=== PATIENT | female | born 2000 | race Two or more races ===

== ENCOUNTER 2024-11-12 19:51 | Emergency (ER) | payer MEDICAID, SELFPAY ==
[2024-11-12 20:20] VITALS: BP 125/57; PULSE 78; RESP 19; TEMP 37.7; O2SAT 99
--- NOTE | 2024-11-12 20:23 | EDNOTE_ITS ---
ED Extremity Problem RME/HPI General Chief complaint: Extremity Problem,Nontraumatic Stated complaint: LEFT LEG PAIN Time Seen by Provider: 11/12/24 19:57 Arrival date/time: 11/12/24 19:51 RME / HPI RME / HPI Narrative: 23-year-old female patient came in for evaluation regarding low back pain. Onset of symptoms since early this morning as low back pain, pain radiates to the left lower extremity, posterior aspect, severity moderate. Patient denies any urinary incontinence denies any bladder incontinence denies any dysuria frequency or other complaints. No medication was taken prior to arrival. Related Data Allergies Allergy/AdvReac Type Severity Reaction Status Date / Time No Known Allergies Allergy Verified 11/12/24 19:53 Review of Systems Review of Systems Narrative Review of Systems: Review of system reviewed and within normal limits except mentioned in HPI ED Exam Narrative Physical exam: VITAL SIGNS: Reviewed. GENERAL APPEARANCE: Alert and interactive, follows commands, no acute distress, HEAD AND FACE: Non-traumatic. ENT: PERRL, pink conjunctivitis, eyelid no trauma, Mucous membrane moist. NECK: Supple, nontender, no nuchal rigidity. CHEST: No tenderness, no crepitus, no paradoxical movement, no retractions. LUNGS: Clear, well ventilated, symmetric, no rales, no wheezing, no ronchi, no stridor, good breath sounds bilaterally. HEART: Regular rate, regular rhythm, no murmur, no gallops. ABDOMEN: Soft, positive bowel sounds, nondistended, no guarding, nontender, no rebound, no masses, RECTAL: Deferred. GENITAL: Deferred. NEUROLOGICAL: Gross motor function intact sensory function intact, Appropriate for age. MUSCULOSKELETAL: low back tenderness, full range of motion. EXTREMITIES: + Tenderness to the left posterior thigh, positive straight leg raising test at 45 degrees, full range of motion. SKIN: Color pink, dry, no rash, no lacerations, no abrasions, no contusions. LYMPHATICS: Deferred. Course Quality Measures none Orders Category Date Time Status HCG Qualitative,Urine Stat Lab 11/12/24 21:05 Completed UA, C/S IF [Urinalysis, C/S if Indicated] Stat Lab 11/12/24 21:05 Completed Acetaminophen Tab [Tylenol ES Tab] Med 11/12/24 21:34 Discontinued 1,000 mg PO X1 ONE Ketorolac Inj [Toradol Inj] Med 11/12/24 20:22 Discontinued 30 mg IM X1 ONE Vital Signs Vital signs: Vital Signs Temperature 100 F 11/12/24 20:20 Pulse Rate 78 11/12/24 20:20 Respiratory Rate 19 11/12/24 20:20 Blood Pressure 125/57 L 11/12/24 20:20 Pulse Oximetry (%) 99 11/12/24 20:20 Oxygen Delivery Method Room Air 11/12/24 20:20 Extremity Problem [facility] Narrative [facility] Narrative:: 23-year-old female patient came in for evaluation regarding low back pain. Onset of symptoms since early this morning as low back pain, pain radiates to the left lower extremity, posterior aspect, severity moderate. Patient denies any urinary incontinence denies any bladder incontinence denies any dysuria frequency or other complaints. No medication was taken prior to arrival. Patient tested positive for . Urinalysis no UTI. Patient is having sciatica. Further imaging or workup started at this time. Patient is not having any abdominal pain, no vaginal bleeding or spotting. Denies any pelvic pain also. Patient was advised to closely follow-up with PCP or DIALYSIS EQUIPMENT TECHNICIAN for checkup. Patient appears nontoxic and hemodynamically stable. Patient discharged home and instructed to follow-up with primary care provider in 24 to 48 hours. Instructed to return to the emergency department immediately if worsening of symptoms Patient data External records reviewed:: None Clinical information provided by:: patient Social determinants that could affect healthcare access:: none Patient has the following chronic illnesses:: None How is presenting disease/condition affected by chronic disease/condition?: no chronic disease Evaluation data The following diagnostics were reviewed and interpreted by me:: lab results Lab and/or radiology exams considered but not ordered:: None Interpretation Summary: See results in MDM Medications / Prescriptions Medications or Prescriptions considered but not ordered:: None Medication administrations:: Medication Administration History Discontinued Medications Acetaminophen (Acetaminophen 500 Mg Tablet) 1,000 mg PO X1 ONE Stop: 11/12/24 21:35 Last Admin: 11/12/24 21:37 Dose: 1,000 mg Documented By: AGUSTINA Ketorolac Tromethamine (Ketorolac Inj 60 Mg/2 Ml Vial) 30 mg IM X1 ONE Stop: 11/12/24 20:23 Last Admin: 11/12/24 21:33 Dose: Not Given Documented By: AGUSTINA Non-Admin Reason: Discontinued Tylenol Consultations Consultation(s) initiated? (list below): No Diagnosis Extremity Problem Differential Diagnosis: other (Low back pain, sciatica, ) Most likely diagnosis given after review of the tests above:: Sciatica, Admission Indicated Admission indicated?: not indicated Explain why admission is indicated or not indicated:: Stable Admission Request Was there a request for admission?: No Disposition Plan Disposition Plan: Discharge Discharge Attestation Discharge Attestation: The patient was given an opportunity to ask questions and understood the discharge instructions. Discharge instructions specifically effects, indications for sooner follow up or return to the emergency department, and the expected course of current diagnosis. Patient condition: Stable Discharge Plan Plan Patient Disposition: HOME (Self Care) Disposition Comment: Stable Prescriptions/Referrals Referrals: No Primary/Family,Physician [Primary Care Provider] - In 1 week Problem List Clinical Impression: Sciatica, Patient/Caregiver Discharge Instructions Discharge Activity: activity as tolerated Education Materials: First Trimester, ED Sciatica Additional Instructions: Thank you for the opportunity for serving you today. You are stable for discharged . You are advised to: Follow-up with your PCP in 1 to 2 days regarding your positive Return to ED for worsening of symptoms, vaginal bleeding, abdominal pain Increase oral fluids Take [id number] Tylenol send for pain Print Language: Kazakh Stand Alone Forms: Tatyana Award Info., Patient Portal Info Letter RAVI/JILLIAN Supervising Physician RAVI/JILLIAN Supervising Physician: MD meredith
[2024-11-12 21:17] LABS: Collection Type, Urine Clean Catch
[2024-11-12 21:28] LABS: Bacteria,Urine Rare; Bilirubin,Urine Negative (Negative); Blood,Urine Negative (Negative); Clarity,Urine Clear (Clear/Hazy); Color,Urine Lt-Yellow (Lt Yel-Yel); Culture Indicated,Urine Not Indicated; Glucose, Urine Negative (Negative); Ketones,Urine Negative (Negative); Leukocyte Esterase,Urine Positive (Negative); Nitrite,Urine Negative (Negative); PH,Urine 6.5 (5.0-7.0); Protein,Urine Negative (Neg - Trace); RBC,Urine 1 /hpf (0-3); Squamous Epithelial Cell,Urine 4 /hpf (0-5); Urobilinogen,Urine Negative mg/dL (0.0-1.0); WBC,Urine < 1 /hpf (0-5)
[2024-11-12 21:31] LABS: HCG Qualitative,Urine Positive
[2024-11-12] MEDS: ACETAMINOPHEN 500 MG TABLET 1000 MG PO (21:37)
[2024-11-12 21:38] VITALS: BMI 31.2
[2024-11-12 22:20] VITALS: RESP 16
== END 2024-11-12 22:23 | disposition home or self-care (01) ==
PROVIDERS: Nurse Practitioner Family; Emergency Provider Emergency Medicine
DX: O99.891 Other specified diseases and conditions complicating pregnancy (principal); M54.42 Lumbago with sciatica, left side; Z3A.00 Weeks of gestation of pregnancy not specified
CPT/HCPCS: 81001; 81025; 99283; A9270

== ENCOUNTER 2025-05-31 09:15 | Outpatient (AMB) | payer MEDICAID, SELFPAY ==
[2025-05-31 09:31] VITALS: BP 109/70; PULSE 77; RESP 16; TEMP 36.1; O2SAT 97; BMI 31.8
--- NOTE | 2025-05-31 09:31 | AMB.OBINITIA ---
Vital Signs 05/31/25 09:31 Height 1.5 m Height Method Stated Weight 71.668 kg Weight Measurement Method Standing Scale BMI 31.8 BP 109/70 Blood Pressure Source Automatic Cuff Blood Pressure Location Left Upper Arm Position Sitting Respiration 16 Pulse 77 Pulse Source Monitor Temp 97.0 F Temp Source Oral Pulse Oximetry (%) 97 Oxygen Delivery Method Room Air Allergies/Home Meds Allergies & Medications Allergies No Known Allergies Allergy (Verified 05/31/25 09:32) Medication Reconciliation No Known Home Medications 05/31/25 [History Confirmed 05/31/25] Intake Visit Data Collection New Patient or Established: Established Patient (seen at [facility] within 3 years) Reason for Visit:: INITIAL CARE Seen by Clinical Staff ONLY (RN/MA): No Slot Editor Required: Yes Slot Editor's name/title: ELIDIA MORTENSEN Do You Feel Safe at Home: Yes Authorities Contacted: N/A PCP or OBGYN visit in last 3 months: Yes Hx Now: Yes Are you currently on any form of Control: No Pain Present Currently: No Pain Scale Used: Caruso-Travis/Numerical Pain scale:: 0 Smoking Status Smoking Status: Never smoker Questionnaires Covid-19 Vaccine Questionnaire Has patient been vacinated for Covid-19 Have you been vacinated for Covid-19: Yes PHQ-9 PHQ-2 Over the last 2 weeks, how often have you been bothered by any of the following problems? 1. Little interest or pleasure in doing things: not at all 2. Feeling down, depressed, or hopeless: not at all Total score: 0 PHQ-9 3. Trouble falling or staying asleep, or sleeping too much: Not at all 4. Feeling tired or having little energy: Not at all 5. Poor appetite or overeating: Not at all 6. Feeling bad about yourself - or that you are a failure or have let yourself or your family down: Not at all 7. Trouble concentrating on things, such as reading the newspaper or watching television: Not at all 8. Moving or speaking so slowly that other people could have noticed? - Or the opposite - being so fidgety or restless that you have been moving around a lot more than usual: not at all 9. Thoughts that you would be better off or of hurting yourself in some way: Not at all Total score: 0 Source: Developed by Drs. Leonel Irwin, Margoth Yeboah, John Espino and colleagues, with an educational zee from [employer]. Depression screen completed yes Social History Living Situation History Marital Status: Life Partner Lives With: Family Housing: House Tobacco History Smoking Status: Never smoker Second Hand Smoke Exposure: No Alcohol History Alcohol Intake: Never Domestic Abuse History Do You Feel Safe at Home: Yes History of Present Illness HPI Narrative Chief Complaint Transfer of care from [facility], care Patient is a 24-year-old at 32 weeks and 5 days gestation, presenting for transfer of care from [facility]. She reports no current complaints or concerns and denies experiencing any contractions or other -related problems. Her appears to be progressing normally, with no reported issues affecting her daily functioning or overall health status. She has a history of one previous resulting in delivery. Her previous was performed in [place], and she has expressed a preference to use the same incision site for her upcoming delivery. The patient denies any current -related symptoms or complications. Her current has an estimated due date of July 21, 2025, based on an ultrasound performed on December 28, 2024. 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 No contractions, LOF, VB and reports good FM. Denies WILLS, VC, and epigastric pain. - LMP dates are unknown. - Ultrasound on 12/28/2024 confirmed gestational age of 10 weeks and 5 days. - Estimated due date is 07/21/2025. - Patient reports no current contractions or problems with the . - History of one previous performed in [place]. - Patient prefers to use the same incision site for the upcoming . - Scheduled repeat section for July 14 at 7:30 AM (39 weeks gestation, one week before due date of July 21) - Plan to use same incision site as previous section - Follow-up appointment in 2 weeks - After next visit, schedule weekly appointments - Perform routine vaginal culture swab for GBS at 36 weeks during next visit Menstrual History Menstrual reliability: unknown Flow: normal Menstrual regularity: irregular Monthly: No Age at menarche: 10 On control pills at conception: No Associated symptoms (LMP): Denies amenorrhea, nausea, vomiting, fatigue, breast tenderness, urinary frequency, irritability, bloating or other OB History : 2 Para: 1 # of Living Children: 1 Delivery History 1st : Child's name: PANCHO date: 06/21/22 sex: male Gestational age at delivery (weeks): 41 Delivery type: Delivery complications: NONE History of depression before or after : No Infection History & Risk Evaluation History of STDs: none Genetic Screening & History Genetic Screening/Teratology Counseling - Includes patient, baby's father, or anyone in either family with: 1. Patient's age 35 years or older as of estimated date of delivery: No 2. Thalassemia (Citizen Of [place], Sami, Mediterranean, or Background); MCV less than 80: No 3. Neural Tube Defect (Meningomyelocele, Spina Bifida, or Anencephaly): No 4. Congenital Heart Defect: No 5. Down Syndrome: No 6. Jamie-Sachs (Ashkenazi Latter Day, Cajun, Iranian Citizen Of [place]): No 7. Vladislav Disease (Ashkenazi Latter Day): No 8. Familial Dysautonomia (Ashkenazi Latter Day): No 9. Sickle Cell Disease or Trait (): No 10. Hemophilia or other blood disorders: No 11. Muscular Dystrophy: No 12. Cystic Fibrosis: No 13. [place]'s Chorea: No 14. Mental Retardation/Autism: No 15. Other inherited genetic or chromosomal disorder: No 16. Maternal Metabolic Disorder (EG,TYPE 1 Diabetes, PKU): No 17. Patient or baby's father had a child with defects not listed above: No 18. Recurrent loss or a stillbirth: No 19. Medications (including supplements, vitamins, herbs or otc drugs)/illicit/recreational drugs/alcohol since last menstrual period: No 20. Any other: No Infection History 1. Live with someone with TB or exposed to TB: No 2. Rash or viral illness since last menstrual period: No 3. Hepatitis B,C: No Other (see comments) Source: [employer] Review of Systems Constitutional Constitutional: Denies fatigue Gastrointestinal Gastrointestinal: Denies bloating, Denies nausea and Denies vomiting Genitourinary Genitourinary: Denies amenorrhea and Denies urinary frequency Psychiatric Psychiatric: Denies irritability Endocrine Endocrine: Denies fatigue Exam General General Appearance: alert, in no apparent distress and healthy appearing Head Head exam: atraumatic Neck Neck exam: Present normal inspection and trachea midline Chest Chest inspection: Present normal inspection and symmetric chest wall rise External exam: Present normal external exam; Absent tenderness Neuro Neurological exam: Present oriented X3 Psych Psychiatric exam: Present normal affect and normal mood Office Procedures [facility] LOC & Office Proc's Nursing/Assessment Patient Status: Established Patient OB Clinic Nursing Assessment: Medication Reconciliation, Update PMH in EMR and Vital Signs OB Clinic Coordination of Care: Complex Care and Chronic Disease 1-5, Consent,records obtained, informed consent, Education Simp Pt/Fam, 1 Ins Authorization, Lab and Imaging orders, Results/Orders obtained and Staff clarify orders Special Needs: Heart tones Established Patient Charge Established Patient Point Assignment: 150 Established Patient Point Charge: EP Level 4 (120-155) Assessment & Plan Diagnosis / Problem List (1) Maternal care for low transverse scar from previous delivery: Status: Acute (2) Supervision of high risk , unspecified, third trimester: Status: Acute Plan Problem List - , second trimester - History of section - Obesity - Rubella non-immune status - Urinary tract infection due to Enterococcus Assessment 24-year-old 2 para 1 female at 32 weeks 5 days gestation with history of prior section, currently transferred for continued obstetric care. Patient has elevated BMI of 31.8. dating established by ultrasound on 12/28/2024 showing 10 weeks 5 days gestation with estimated due date of 07/21/2025. laboratory studies notable for hemoglobin 13.2, A1C 5.5, rubella nonimmune status, and urine culture positive for enterococcus which was treated with antibiotics. All other screening tests including PAP, gonorrhea/chlamydia, NIPT, AFP, HIV, RPR, and hepatitis B were negative. Patient carrying male fetus with blood type O positive. Currently asymptomatic with no reported contractions or problems, and heart rate of 145 bpm documented as normal. Plan - Scheduled repeat section for July 14 at 7:30 AM (39 weeks gestation, one week before due date of July 21) - Plan to use same incision site as previous section - Follow-up appointment in 2 weeks - After next visit, schedule weekly appointments - Perform routine vaginal culture swab for GBS at 36 weeks during next visit 1. Progress Reviewed gestational age, growth, and heart rate. Planned frequent visits (every 2 weeks until 36 weeks, then weekly). 2. Instructed patient to monitor movements and report decreases immediately. 3. Testing Counseled on routine third-trimester labs per guidelines. Discussed potential need for ultrasound or monitoring based on risk factors. 4. Preeclampsia Precaution Educated on preeclampsia signs: severe headache, vision changes, right upper quadrant pain, sudden swelling. Advised urgent reporting of symptoms and discussed blood pressure monitoring if high risk. 5. Labor Precautions Reviewed labor signs: regular contractions, pelvic pressure, back pain, bleeding, or fluid leakage. Instructed to seek immediate care for these symptoms. 6. Lifestyle and Delivery Preparation Reinforced vitamins, nutrition, and safe activity. Discussed plan, pain management, and . Advised on labor preparation (e.g., hospital bag) and expectations. 7. Psychosocial Support Assessed emotional well-being and offered resources for mental health or parenting support.
== END 2025-05-31 09:47 | disposition home or self-care (01) ==
LOC: HODSOBC 09:15
PROVIDERS: Supervising Provider Obstetrics & Gynecology; Visit Provider Obstetrics & Gynecology
DX: O09.293 Supervision of pregnancy with other poor reproductive or obstetric history, third trimester (principal); O34.211 Maternal care for low transverse scar from previous cesarean delivery; O09.893 Supervision of other high risk pregnancies, third trimester; O99.213 Obesity complicating pregnancy, third trimester; Z3A.32 32 weeks gestation of pregnancy; Z78.9 Other specified health status
CPT/HCPCS: 99214; G0463

== ENCOUNTER 2025-06-16 10:45 | Outpatient (AMB) | payer MEDICAID, SELFPAY ==
[2025-06-16 11:06] VITALS: BP 120/75; PULSE 69; RESP 14; TEMP 36.4; O2SAT 98; BMI 32.7
--- NOTE | 2025-06-16 11:06 | OBCLNT_ITS ---
Vital Signs 06/16/25 11:06 Height 1.5 m Height Method Stated Weight 73.595 kg Weight Measurement Method Standing Scale BMI 32.7 BP 120/75 Blood Pressure Source Automatic Cuff Blood Pressure Location Left Upper Arm Position Sitting Respiration 14 Pulse 69 Pulse Source Monitor Temp 97.6 F Temp Source Oral Pulse Oximetry (%) 98 Oxygen Delivery Method Room Air Allergies/Home Meds Allergies & Medications Allergies No Known Allergies Allergy (Verified 07/14/25 08:23) Medication Reconciliation docusate sodium 100 mg capsule (Stool Softener) 100 mg PO QDAY 30 days #30 caps 07/14/25 [Rx] hydrocodone 5 mg-acetaminophen 325 mg tablet 1 tab PO Q6H PRN pain 5 days #20 tabs 07/14/25 [Rx] ibuprofen 600 mg tablet 600 mg PO Q6H PRN fever or pain 10 days #40 tabs 07/14/25 [Rx] Intake Visit Data Collection New Patient or Established: Established Patient (seen at [facility] within 3 years) Reason for Visit:: CARE Seen by Clinical Staff ONLY (RN/MA): No Sand Screener Required: No Do You Feel Safe at Home: Yes Authorities Contacted: N/A PCP or OBGYN visit in last 3 months: Yes Hx Now: Yes Are you currently on any form of Control: No Pain Present Currently: No Pain Scale Used: Caruso-Travis/Numerical Pain scale:: 0 Smoking Status Smoking Status: Never smoker Questionnaires Covid-19 Vaccine Questionnaire Has patient been vacinated for Covid-19 Have you been vacinated for Covid-19: Yes PHQ-9 PHQ-2 Over the last 2 weeks, how often have you been bothered by any of the following problems? 1. Little interest or pleasure in doing things: not at all 2. Feeling down, depressed, or hopeless: not at all Total score: 0 PHQ-9 3. Trouble falling or staying asleep, or sleeping too much: Not at all 4. Feeling tired or having little energy: Not at all 5. Poor appetite or overeating: Not at all 6. Feeling bad about yourself - or that you are a failure or have let yourself or your family down: Not at all 7. Trouble concentrating on things, such as reading the newspaper or watching television: Not at all 8. Moving or speaking so slowly that other people could have noticed? - Or the opposite - being so fidgety or restless that you have been moving around a lot more than usual: not at all 9. Thoughts that you would be better off or of hurting yourself in some way: Not at all Total score: 0 Source: Developed by Drs. Leonel Irwin, Margoth Yeboah, John Espino and colleagues, with an educational zee from [employer]. Depression screen completed yes Social History Living Situation History Lives With: Family Housing: House Tobacco History Smoking Status: Never smoker Second Hand Smoke Exposure: No Alcohol History Alcohol Intake: Never Domestic Abuse History Do You Feel Safe at Home: Yes Care OB Visit Log OB Flowsheet Initial Weight: Not Recorded Date -?-?-?-?-?-?-?-?-?-?-?-?- EGA Weight BP Alb Glu CTX Pres Fundal ht FHR Mov Dilation Station Effacement Hx Notes Visit Note 05/31/25 -?-?-?-?-?-?-?-?-?-?-?-?- 32w 5d 71.668 kg 109/70 absent cephalic 33 145 Patient has a history of prior delivery. No contractions, LOF, VB and reports goo d FM. Denies WILLS, VC, and epigastric pain. - LMP dates are unknown. - Ultrasound on 12/28/2024 confirmed gest ational age of 10 weeks and 5 days. - Estimated due date is 07/21/2025. - Patient reports no current contraction s or problems with the . - History of one previous perf ormed in [place]. - Patient prefers to use the same incision site for the upcoming C- section. - Scheduled repeat section for July 14 at 7:30 AM (39 weeks gestation, one week before due date of July 21) - Plan to use same incision site as prev ious section - Follow-up appointment in 2 weeks - After next visit, schedule weekly appo intments - Perform routine vaginal culture swab f or GBS at 36 weeks during next visit 06/16/25 -?-?-?-?-?-?-?-?-?-?-?-?- 35w 0d 73.595 kg 120/75 absent breech 35 155 - She reports no contractions and describes the baby as active. - Patient has a scheduled repeat cesarea n section planned for July 14, 2025 at 7:30 AM. - She requested verification documentation. - Repeat scheduled for 07-14-2025 at 7:30 AM - GBS culture to be obtained at next vis it in one week - MMR vaccination due to rube lla nonimmune status - verification letter to be pr ovided AMY Calculator Estimated Delivery Date Method Current WG Current Estimate 07/21/25 Ultrasound #1 39w 0d Notes Visit Date: 05/31/25 Last Updated by: Agustín Villar MD Diagnostic Test Results and Labs: - Ultrasound (12/28/2024): Gestational age 10 weeks and 5 days, estimated due date 07/21/2025 - PAP: Negative - Gonorrhea: Negative - Chlamydia: Negative - NIPT screen: Negative - AFP: Negative - sex: Male - Blood group: O positive - A1C: 5.5 - Rubella: Nonimmune - Initial hemoglobin: 13.2 - HIV: Negative - RPR: Non-reactive - Hepatitis B: Negative - Urine culture: Positive for enterococcus Office Procedures [facility] Clinic LOC & Office Proc's Nursing/Assessment Patient Status: Established Patient OB Clinic Nursing Assessment: Medication Reconciliation, Update PMH in EMR and Vital Signs OB Clinic Coordination of Care: Complex Care and Chronic Disease 1-5, Consent,records obtained, informed consent, Education Simp Pt/Fam, Lab and Imaging orders, Results/Orders obtained and Staff clarify orders Special Needs: Heart tones Established Patient Charge Established Patient Point Assignment: 135 Established Patient Point Charge: EP Level 4 (120-155) Assessment & Plan Diagnosis / Problem List (1) delivery delivered: Status: Acute (2) Supervision of high risk , unspecified, third trimester: Status: Acute (3) Maternal care for low transverse scar from previous delivery: Status: Acute Plan Problem List - , second trimester - Group B Streptococcus screening - History of enterococcus uteri - Rubella nonimmune status Assessment 35-week patient, 2 para 1, with history of enterococcus uteri that was treated per culture. Patient is rubella nonimmune. heart rate is 156 with normal rhythm. Patient reports no contractions and describes baby as active. Plan - Repeat scheduled for 07-14-2025 at 7:30 AM - GBS culture to be obtained at next visit in one week - MMR vaccination due to rubella nonimmune status - verification letter to be provided 1. Progress Reviewed gestational age (35 weeks 0 days), growth, and heart rate (156, normal). Planned frequent visits (every 2 weeks until 36 weeks, then weekly). 2. Instructed patient to monitor movements and report decreases immediately. 3. Testing Counseled on routine third-trimester labs per guidelines (GBS culture scheduled). Discussed potential need for ultrasound or monitoring based on risk factors. 4. Preeclampsia Precaution Educated on preeclampsia signs: severe headache, vision changes, right upper quadrant pain, sudden swelling. Advised urgent reporting of symptoms and discussed blood pressure monitoring if high risk. 5. Labor Precautions Reviewed labor signs: regular contractions, pelvic pressure, back pain, bleeding, or fluid leakage. Instructed to seek immediate care for these symptoms. 6. Lifestyle and Delivery Preparation Reinforced vitamins, nutrition, and safe activity. Discussed plan (repeat scheduled 07-14-2025 at 7:30), pain management, and . Advised on labor preparation (e.g., hospital bag) and expectations. 7. Psychosocial Support Assessed emotional well-being and offered resources for mental health or parenting support.
== END 2025-06-16 11:24 | disposition home or self-care (01) ==
PROVIDERS: Supervising Provider Obstetrics & Gynecology; Visit Provider Obstetrics & Gynecology
DX: O09.293 Supervision of pregnancy with other poor reproductive or obstetric history, third trimester (principal); O34.211 Maternal care for low transverse scar from previous cesarean delivery; Z3A.35 35 weeks gestation of pregnancy
CPT/HCPCS: 99214; G0463

== ENCOUNTER 2025-06-25 19:31 | Observation (INO) | payer MEDICAID, SELFPAY ==
[2025-06-25] VITALS (46 sets, daily range): BP systolic 96–116; BP diastolic 58–87; PULSE 67–81; RESP 16–98; TEMP 37.1; O2SAT 93–100; BMI 33.0
[2025-06-25] MEDS: ACETAMINOPHEN 325 MG TABLET 650 MG PO (20:39)
[2025-06-25] MEDS: HYDROcodone/APAP 5/325 TABLET 1 TAB PO (21:39)
== END 2025-06-25 23:20 | disposition home or self-care (01) ==
PROVIDERS: Admitting Provider Obstetrics & Gynecology; Visit Provider Obstetrics & Gynecology
DX: O99.891 Other specified diseases and conditions complicating pregnancy (principal); M54.32 Sciatica, left side; Z3A.36 36 weeks gestation of pregnancy
CPT/HCPCS: 59025; 59899; A9270

== ENCOUNTER 2025-06-27 09:51 | Outpatient (AMB) | payer MEDICAID, SELFPAY ==
[2025-06-27 10:11] VITALS: BP 115/70; PULSE 80; RESP 18; TEMP 36.2; O2SAT 998
--- NOTE | 2025-06-27 10:11 | OBCLNT_ITS ---
Vital Signs 06/27/25 10:11 Weight 73.595 kg Weight Measurement Method Standing Scale BP 115/70 Blood Pressure Source Automatic Cuff Blood Pressure Location Left Upper Arm Position Sitting Respiration 18 Pulse 80 Pulse Source Monitor Temp 97.2 F Temp Source Oral Pulse Oximetry (%) 998 H Oxygen Delivery Method Room Air Allergies/Home Meds Allergies & Medications Allergies No Known Allergies Allergy (Verified 07/14/25 08:23) Medication Reconciliation docusate sodium 100 mg capsule (Stool Softener) 100 mg PO QDAY 30 days #30 caps 07/14/25 [Rx] hydrocodone 5 mg-acetaminophen 325 mg tablet 1 tab PO Q6H PRN pain 5 days #20 tabs 07/14/25 [Rx] ibuprofen 600 mg tablet 600 mg PO Q6H PRN fever or pain 10 days #40 tabs 07/14/25 [Rx] Intake Visit Data Collection New Patient or Established: Established Patient (seen at [facility] within 3 years) Reason for Visit:: OBC Seen by Clinical Staff ONLY (RN/MA): No Registered Public Health Nurse Required: Yes Registered Public Health Nurse's name/title: DEIDRE FIELDS MA Do You Feel Safe at Home: Yes Authorities Contacted: N/A PCP or OBGYN visit in last 3 months: Yes Date of Last PCP or OBGYN visit: 06/25/25 Hx Now: Yes Are you currently on any form of Control: No Pain Present Currently: No Pain Scale Used: Caruso-Travis/Numerical Pain scale:: 0 Smoking Status Smoking Status: Never smoker Immunizations Flu Vaccine in the Last 12 Months: No Flu Vaccine Exclusion Criteria: No Exclusion Criteria Questionnaires Covid-19 Vaccine Questionnaire Has patient been vacinated for Covid-19 Have you been vacinated for Covid-19: Yes PHQ-9 PHQ-2 Over the last 2 weeks, how often have you been bothered by any of the following problems? 1. Little interest or pleasure in doing things: not at all 2. Feeling down, depressed, or hopeless: not at all Total score: 0 PHQ-9 3. Trouble falling or staying asleep, or sleeping too much: Not at all 4. Feeling tired or having little energy: Not at all 5. Poor appetite or overeating: Not at all 6. Feeling bad about yourself - or that you are a failure or have let yourself or your family down: Not at all 7. Trouble concentrating on things, such as reading the newspaper or watching television: Not at all 8. Moving or speaking so slowly that other people could have noticed? - Or the opposite - being so fidgety or restless that you have been moving around a lot more than usual: not at all 9. Thoughts that you would be better off or of hurting yourself in some way: Not at all Total score: 0 If you checked off any problems, how difficult have these problems made it for you to do your work, take care of things at home, or get along with other people?: not difficult at all Source: Developed by Drs. Leonel Irwin, Margoth Yeboah, John Espino and colleagues, with an educational zee from [employer]. Depression screen completed yes Social History Living Situation History Lives With: Family Housing: House Tobacco History Smoking Status: Never smoker Second Hand Smoke Exposure: No Alcohol History Alcohol Intake: Never Domestic Abuse History Do You Feel Safe at Home: Yes Care OB Visit Log OB Flowsheet Initial Weight: Not Recorded Date -?-?-?-?-?-?-?-?-?-?-?-?- EGA Weight BP Alb Glu CTX Pres Fundal ht FHR Mov Dilation Station Ef facement Hx Notes Visit Note 05/31/25 -?-?-?-?-?-?-?-?-?-?-?-?- 32w 5d 71.668 kg 109/70 absent cephalic 33 145 Patient has a history of prior delivery. No contractions, LOF, VB and reports goo d FM. Denies WILLS, VC, and epigastric pain. - LMP dates are unknown. - Ultrasound on 12/28/2024 confirmed gest ational age of 10 weeks and 5 days. - Estimated due date is 07/21/2025. - Patient reports no current contraction s or problems with the . - History of one previous perf ormed in [place]. - Patient prefers to use the same incision site for the upcoming C- section. - Scheduled repeat section for July 14 at 7:30 AM (39 weeks g estation, one week before due date of July 21) - Plan to use same incision site as prev ious section - Follow-up appointment in 2 weeks - After next visit, schedule weekly appo intments - Perform routine vaginal culture swab f or GBS at 36 weeks during next visit 06/16/25 -?-?-?-?-?-?-?-?-?-?-?-?- 35w 0d 73.595 kg 120/75 absent breech 35 155 - She reports no contractions and describes the baby as active. - Patient has a scheduled repeat cesarea n section planned for July 14, 2025 at 7:30 AM. - She requested verification documentation. - Repeat scheduled for 07-14-2025 at 7:30 AM - GBS culture to be obtained at next vis it in one week - MMR vaccination due to rube lla nonimmune status - verification letter to be pr ovided 06/27/25 -?-?-?-?-?-?-?-?-?-?-?-?- 36w 4d 73.595 kg 115/70 occasional breech 37 1 45 - has been uncomplicated. - Patient reports baby is moving appropr iately. - She denies contractions. - Patient has a scheduled repeat cesarea n section on July 14. - Patient inquired about some form of tr eatment or therapy but was informed it was too late in due to positioning requirements. - She reports experiencing some pain for which she was advised to use rest, Tylenol, and hot compresses. - G BS culture performed - Scheduled repeat section on N 2024 - For current pain: lie down, take Tylen ol, and apply hot compresses - Follow-up appointment in one week prio r to scheduled section AMY Calculator Estimated Delivery Date Method Current WG Current Estimate 07/21/25 Ultrasound #1 39w 0d Notes Visit Date: 05/31/25 Last Updated by: Agustín Villar MD Diagnostic Test Results and Labs: - Ultrasound (12/28/2024): Gestational age 10 weeks and 5 days, estimated due date 07/21/2025 - PAP: Negative - Gonorrhea: Negative - Chlamydia: Negative - NIPT screen: Negative - AFP: Negative - sex: Male - Blood group: O positive - A1C: 5.5 - Rubella: Nonimmune - Initial hemoglobin: 13.2 - HIV: Negative - RPR: Non-reactive - Hepatitis B: Negative - Urine culture: Positive for enterococcus Office Procedures [facility] Clinic LOC & Office Proc's Nursing/Assessment Patient Status: Established Patient OB Clinic Nursing Assessment: Medication Reconciliation, Update PMH in EMR and Vital Signs OB Clinic Coordination of Care: Consent,records obtained, informed consent, Education Simp Pt/Fam, Lab and Imaging orders, Results/Orders obtained and Staff clarify orders Special Needs: Heart tones Miscellaneous Interventions: Pelvic Comp w/OB cult Established Patient Charge Established Patient Point Assignment: 125 Established Patient Point Charge: EP Level 4 (120-155) Assessment & Plan Diagnosis / Problem List (1) Maternal care for low transverse scar from previous delivery: Status: Acute (2) Supervision of high risk , unspecified, third trimester: Status: Acute Plan Assessment 24-year-old at 36 weeks 4 days gestation with uncomplicated . heart rate is 169 bpm, which is within normal limits. Patient is due for GBS culture, which was performed during this visit. Patient has scheduled repeat section on July 14. Patient reports movement and denies contractions. Plan - GBS culture performed - Scheduled repeat section on July 14, 2025 - For current pain: lie down, take Tylenol, and apply hot compresses - Follow-up appointment in one week prior to scheduled section 1. Progress Reviewed gestational age (36 weeks 4 days), growth, and heart rate (169 bpm, normal). Planned frequent visits (every 2 weeks until 36 weeks, then weekly). 2. Instructed patient to monitor movements and report decreases immediately. 3. Testing Counseled on routine third-trimester labs per guidelines (GBS culture performed). Discussed potential need for ultrasound or monitoring based on risk factors. 4. Preeclampsia Precaution Educated on preeclampsia signs: severe headache, vision changes, right upper quadrant pain, sudden swelling. Advised urgent reporting of symptoms and discussed blood pressure monitoring if high risk. 5. Labor Precautions Reviewed labor signs: regular contractions, pelvic pressure, back pain, bleeding, or fluid leakage. Instructed to seek immediate care for these symptoms. 6. Lifestyle and Delivery Preparation Reinforced vitamins, nutrition, and safe activity. Discussed plan (scheduled repeat on July 14, 2025), pain management, and . Advised on labor preparation (e.g., hospital bag) and expectations. 7. Psychosocial Support Assessed emotional well-being and offered resources for mental health or parenting support.
== END 2025-06-27 11:17 | disposition home or self-care (01) ==
LOC: HODSOBC 09:51
PROVIDERS: Supervising Provider Obstetrics & Gynecology; Visit Provider Obstetrics & Gynecology
DX: O09.293 Supervision of pregnancy with other poor reproductive or obstetric history, third trimester (principal); O34.211 Maternal care for low transverse scar from previous cesarean delivery; O09.893 Supervision of other high risk pregnancies, third trimester; Z3A.36 36 weeks gestation of pregnancy; Z36.85 Encounter for antenatal screening for Streptococcus B
CPT/HCPCS: 99214; G0463

== ENCOUNTER 2025-07-07 14:24 | Outpatient (AMB) | payer MEDICAID, SELFPAY ==
--- NOTE | 2025-07-07 14:25 | OBCLNT_ITS ---
Vital Signs 07/07/25 14:31 Height 1.5 m Height Method Stated Weight 76.657 kg Weight Measurement Method Standing Scale BMI 34.0 BP 110/71 Blood Pressure Source Automatic Cuff Blood Pressure Location Left Upper Arm Position Sitting Respiration 14 Pulse 75 Pulse Source Monitor Temp 97.5 F Temp Source Oral Pulse Oximetry (%) 98 Oxygen Delivery Method Room Air Allergies/Home Meds Allergies & Medications Allergies No Known Allergies Allergy (Verified 07/14/25 08:23) Medication Reconciliation docusate sodium 100 mg capsule (Stool Softener) 100 mg PO QDAY 30 days #30 caps 07/14/25 [Rx] hydrocodone 5 mg-acetaminophen 325 mg tablet 1 tab PO Q6H PRN pain 5 days #20 tabs 07/14/25 [Rx] ibuprofen 600 mg tablet 600 mg PO Q6H PRN fever or pain 10 days #40 tabs 07/14/25 [Rx] Intake Visit Data Collection New Patient or Established: Established Patient (seen at [facility] within 3 years) Reason for Visit:: CARE Seen by Clinical Staff ONLY (RN/MA): No Line Leader Required: No Do You Feel Safe at Home: Yes Authorities Contacted: N/A PCP or OBGYN visit in last 3 months: Yes Hx Now: No Pain Present Currently: No Pain Scale Used: Caruso-Travis/Numerical Pain scale:: 0 Smoking Status Smoking Status: Never smoker Immunizations Flu Vaccine in the Last 12 Months: Yes Flu Vaccine Exclusion Criteria: Already Received Questionnaires Covid-19 Vaccine Questionnaire Has patient been vacinated for Covid-19 Have you been vacinated for Covid-19: Yes PHQ-9 PHQ-2 Over the last 2 weeks, how often have you been bothered by any of the following problems? 1. Little interest or pleasure in doing things: not at all 2. Feeling down, depressed, or hopeless: not at all Total score: 0 PHQ-9 3. Trouble falling or staying asleep, or sleeping too much: Not at all 4. Feeling tired or having little energy: Not at all 5. Poor appetite or overeating: Not at all 6. Feeling bad about yourself - or that you are a failure or have let yourself or your family down: Not at all 7. Trouble concentrating on things, such as reading the newspaper or watching television: Not at all 8. Moving or speaking so slowly that other people could have noticed? - Or the opposite - being so fidgety or restless that you have been moving around a lot more than usual: not at all 9. Thoughts that you would be better off or of hurting yourself in some way: Not at all Total score: 0 Source: Developed by Drs. Leonel Irwin, Margoth Yeboah, John Espino and colleagues, with an educational zee from [employer]. Depression screen completed yes Social History Living Situation History Lives With: Family Housing: House Tobacco History Smoking Status: Never smoker Second Hand Smoke Exposure: No Alcohol History Alcohol Intake: Never Domestic Abuse History Do You Feel Safe at Home: Yes Care OB Visit Log OB Flowsheet Initial Weight: Not Recorded Date -?-?-?-?-?-?-?-?-?-?-?-?- EGA Weight BP Alb Glu CTX Pres Fundal ht FHR Mov Dilation Station Effacement Hx Notes Visit Note 05/31/25 -?-?-?--?-?-?-?-?-?-?-?-?- 32w 5d 71.668 kg 109/70 absent cephalic 33 145 Patient has a history of prior delivery. No contractions, LOF, VB and reports goo d FM. Denies WILLS, VC, and epigastric pain. - LMP dates are unknown. - Ultrasound on 12/28/2024 confirmed gest ational age of 10 weeks and 5 days. - Estimated due date is 07/21/2025. - Patient reports no current contraction s or problems with the . - History of one previous perf ormed in [place]. - Patient prefers to use the same incision site for the upcoming C- section. - Scheduled repeat section for July 14 at 7:30 AM (39 weeks gestation, one week before due date of July 21) - Plan to use same incision site as prev ious section - Follow-up appointment in 2 weeks - After next visit, schedule weekly appo intments - Perform routine vaginal culture swab f or GBS at 36 weeks during next visit 06/16/25 -?-?-?-?-?-?-?-?-?-?-?-?- 35w 0d 73.595 kg 120/75 absent breech 35 155 - She reports no contractions and describes the baby as active. - Patient has a scheduled repeat cesarea n section planned for July 14, 2025 at 7:30 AM. - She requested verification documentation. - Repeat scheduled for 07-14-2025 at 7:30 AM - GBS culture to be obtained at next vis it in one week - MMR vaccination due to rube lla nonimmune status - verification letter to be pr ovided 06/27/25 -?-?-?-?-?-?-?-?-?-?-?-?- 36w 4d 73.595 kg 115/70 occasional breech 37 1 45 - has been uncomplicated. - Patient reports baby is moving appropr iately. - She denies contractions. - Patient has a scheduled repeat cesarea n section on July 14. - Patient inquired about some form of tr eatment or therapy but was informed it was too late in due to positioning requirements. - She reports experiencing some pain for which she was advised to use rest, Tylenol, and hot compresses. - G BS culture performed - Scheduled repeat section on 2024 - For current pain: lie down, take Tylen ol, and apply hot compresses - Follow-up appointment in one week xuan r to scheduled section 07/07/25 -?-?-?-?-?-?-?-?-?-?-?-?- 38w 0d 76.657 kg 110/71 absent breech 39 165 No contractions, LOF, VB and reports good FM. Denies WILLS, VC, and epigastric pain. - Scheduled section next Thursday at 7:30 AM - Patient to arrive at hospital at 5:00 AM for check-in - NPO after 10:00 PM the night before parada rgery - Patient to enter through emergency srinivasan m gate as main gate will be locked - No further appointments sched uled AMY Calculator Estimated Delivery Date Method Current WG Current Estimate 07/21/25 Ultrasound #1 39w 0d Notes Visit Date: 05/31/25 Last Updated by: Agustín Villar MD Diagnostic Test Results and Labs: - Ultrasound (12/28/2024): Gestational age 10 weeks and 5 days, estimated due date 07/21/2025 - PAP: Negative - Gonorrhea: Negative - Chlamydia: Negative - NIPT screen: Negative - AFP: Negative - sex: Male - Blood group: O positive - A1C: 5.5 - Rubella: Nonimmune - Initial hemoglobin: 13.2 - HIV: Negative - RPR: Non-reactive - Hepatitis B: Negative - Urine culture: Positive for enterococcus Office Procedures [facility] Clinic LOC & Office Proc's Nursing/Assessment Patient Status: Established Patient OB Clinic Nursing Assessment: Medication Reconciliation, Update PMH in EMR and Vital Signs OB Clinic Coordination of Care: Complex Care and Chronic Disease 1-5, Consent,records obtained, informed consent, Education Simp Pt/Fam, 1 Ins Authorization, Lab and Imaging orders, Results/Orders obtained and Staff clarify orders Special Needs: Heart tones Established Patient Charge Established Patient Point Assignment: 150 Established Patient Point Charge: EP Level 4 (120-155) Assessment & Plan Diagnosis / Problem List (1) Supervision of high risk , unspecified, third trimester: Status: Acute (2) Maternal care for low transverse scar from previous delivery: Status: Acute Plan Assessment 38-week patient with scheduled section. heart rate is 154 beats per minute, which is within normal limits. Plan - Scheduled section next Thursday at 7:30 AM - Patient to arrive at hospital at 5:00 AM for check-in - NPO after 10:00 PM the night before surgery - Patient to enter through emergency room gate as main gate will be locked - No further appointments scheduled 1. Progress Reviewed gestational age at 38 weeks and 0 days, growth, and heart rate of 154 bpm which is normal. Patient scheduled for section next Thursday. 2. Instructed patient to monitor movements and report decreases immediately. 3. Testing Counseled on routine third-trimester labs per guidelines. Discussed potential need for ultrasound or monitoring based on risk factors. 4. Preeclampsia Precaution Educated on preeclampsia signs: severe headache, vision changes, right upper quadrant pain, sudden swelling. Advised urgent reporting of symptoms and discussed blood pressure monitoring if high risk. 5. Labor Precautions Reviewed labor signs: regular contractions, pelvic pressure, back pain, bleeding, or fluid leakage. Instructed to seek immediate care for these symptoms. 6. Lifestyle and Delivery Preparation Reinforced vitamins, nutrition, and safe activity. Discussed section scheduled for next Thursday at 7:30 AM, with check-in at 5:00 AM at the hospital. Instructed patient not to eat or drink after 10 PM the night before surgery. Provided directions to enter through emergency room gate as main gate will be locked. 7. Psychosocial Support Assessed emotional well-being and offered resources for mental health or parenting support.
[2025-07-07 14:31] VITALS: BP 110/71; PULSE 75; RESP 14; TEMP 36.4; O2SAT 98; BMI 34.0
== END 2025-07-07 14:45 | disposition home or self-care (01) ==
LOC: HODSOBC 14:24
PROVIDERS: Supervising Provider Obstetrics & Gynecology; Visit Provider Obstetrics & Gynecology
DX: O09.293 Supervision of pregnancy with other poor reproductive or obstetric history, third trimester (principal); O34.211 Maternal care for low transverse scar from previous cesarean delivery; Z3A.38 38 weeks gestation of pregnancy
CPT/HCPCS: 99214; G0463

== ENCOUNTER 2025-07-14 05:21 | Inpatient (IN) | payer MEDICAID, SELFPAY ==
[2025-07-14] VITALS (16 sets, daily range): BP systolic 95–120; BP diastolic 46–82; PULSE 70–101; RESP 16–28; TEMP 36.4–36.9; O2SAT 96–100; BMI 32.7
[2025-07-14 06:20] LABS: Basophils # (Auto) 0.0 Thou/mm3 (0.0-0.2); Basophils % (Auto) 0 % (0-2.5); Eosinophils # (Auto) 0.2 Thou/mm3 (0.0-0.5); Eosinophils % (Auto) 2 % (0-10); Hematocrit 38.3 % (36.0-46.0); Hemoglobin 13.1 g/dL (12.0-16.0); Immature Granulocytes Auto 0.03 Thou/mm3 (0.00-0.00); Lymphocytes # (Auto) 2.2 Thou/mm3 (1.0-4.8); Lymphocytes % (Auto) 24 % (10-50); Mean Corpuscular HGB Conc 34.2 g/dl (31.0-37.0); Mean Corpuscular Hemoglobin 31.3 pg (25.0-35.0); Mean Corpuscular Volume 91 fL (80-100); Monocytes # (Auto) 0.4 Thou/mm3 (0.0-0.8); Monocytes % (Auto) 4 % (0-12); Neutrophils # (Auto) 6.3 Thou/mm3 (1.8-7.7); Neutrophils % (Auto) 69 % (37-80); Nucleated Red Blood Cell # 0.00 Thou/mm3 (0.00-0.00); Nucleated Red Blood Cell % 0 /100 WBC (0); Platelet Count 209 Thou/mm3 (140-440); RDW Standard Deviation 42.7 fL (36.4-46.3); Red Blood Count 4.19 Miln/mm3 (4.00-5.20); White Blood Count 9.1 Thou/mm3 (3.6-11.0)
[2025-07-14 07:01] LABS: Syphilis Nonreactive (Nonreactive)
[2025-07-14] MEDS: METOCLOPRAMIDE INJ 5 MG/ML VIAL 2 ML 10 MG IVP ×2 (07:18→10:56)
[2025-07-14] MEDS: FAMOTIDINE INJ 10 MG/ML VIAL 2 ML 20 MG IV (07:19)
[2025-07-14] MEDS: ceFAZolin/D5W 2 GM IV 2 GM/100 ML BAG IV (07:19)
[2025-07-14] MEDS: RINGERS LACTATED 1000 ML 1,000 ML 100 ML IV (07:19)
--- NOTE | 2025-07-14 07:29 | ESHP_ITS ---
Documentation for date of: 07/14/25 OB Labor/Induct. HPI History of Present Illness Chief complaint: Schedule repeat : 2 Para: 1 Term pregnancies: 1 pregnancies: 0 Living children: 1 History of Abortions: Spontaneous and Elective: 0 History of Vaginal deliveries: 0 History of sections: Yes History of : No Date of last menstrual period: 11/19/24 AMY: 07/21/25 Gestational Age (weeks): 39 Gestational age based on last menstrual period: 33 History of present illness: 24-year-old 2 para 1-0-0-1 at 39 weeks and 0 days is presenting for her scheduled repeat low-transverse . Patient has a history of 1 prior C- section in [place]. On presentation she denies any contractions or leakage of fluid or vaginal bleeding and reports adequate movements. Labs Labs: Negative: RPR, Hepatitis B, Rubella Titre, HIV, Chlamydia, Gonorrhea and Group Beta Strep and Unknown: Herpes Type 1, Herpes Type 2 and Covid-19 Past Medical History Surgical History SURGICAL: Positive Section Meds Home Medications and Allergies Home Medications ?Medication ?Instructions ?Recorded ?Confirmed ?Type aspirin 81 mg chewable tablet 1 tab PO QDAY 06/25/25 1 History vit no.95-ferrous 1 tab PO QDAY 06/25/2506/09 History fumarate 28 mg-folic acid 800 mcg tablet () Allergies Allergy/AdvReac Type Severity Reaction Status Date / Time No Known Allergies Allergy Verified 07/07/25 14:32 OB Exam Physical Exam Vital signs: Pulse BP 71 110/73 07/14/25 05:50 07/14/25 05:50 Constitutional Constitutional: no acute distress Routine HEENT Exam Head: Present normocephalic and atraumatic Eye: Present EOMI and PERRL ENT: Present mucous membranes moist Routine Neck Exam Neck: Present supple and trachea midline Routine Cardiovascular Exam Cardiovascular: Present RRR Routine Abdominal Exam Abdominal: Present soft and normoactive bowel sounds Detailed Labor and Delivery Exam Dilation (cm): 0 Effacement (%): 0 Cervix position: mid station: -3 Consistency: firm Presentation: Vertex Baseline heart rate: 145 monitor accelerations: 15x15 monitor decelerations: None Routine Extremities Exam Extremities: Present full ROM Routine Skin Exam Skin: Present intact, dry and warm Routine Neurological Exam Neurological: Present alert, oriented X3 and CN II-XII intact Routine Psychiatric Exam Psychiatric: Present normal affect and normal thought process OB Results Labs 07/14/25 05:54 Labs: Short CBC 07/14/25 Range/Units 05:54 WBC 9.1 (3.6-11.0) Thou/mm3 Hgb 13.1 (12.0-16.0) g/dL Hct 38.3 (36.0-46.0) % Plt Count 209 (140-440) Thou/mm3 OB Assessment & Plan Assessment and Plan (1) Supervision of high risk , unspecified, third trimester: Status: Acute (2) Maternal care for low transverse scar from previous delivery: Status: Acute (3) delivery delivered: Status: Acute Assessment and plan: Admit to inpatient status for repeat low transverse IV access, CBC, type and screen, LR at 125, RPR, COVID-19 test GBS negative Ancef 2 g prior to surgery start Shields catheter to drainage SCDs for DVT prophylaxis Anesthesia to preop for spinal anesthesia Scheduled for surgery.
--- NOTE | 2025-07-14 08:28 | PD.GYNPROC ---
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 Identity was confirmed by double identifiers and she was placed on the operating table. Spinal anesthesia was administered and patient was now positioned in the supine position. A Shields catheter was placed to continuous drainage. The abdomen was prepped in the usual sterile fashion and sterile drapes were applied. A timeout procedure was completed. A vertical skin incision was made through the patient's old scar and carried through the subcutaneous steel layer to the rectus midline fascia. The rectus fascia was incised and the incisions were extended both superiorly and inferiorly taking care to protect the underlying intra-abdominal structures. Some amount of omental additions were noted to the anterior abdominal wall. Once adequate room was created a Tariq O ring retractor was placed. The anterior surface of the uterus was palpated and multiple fibroids could be palpated in the fundal portion of the uterus with the fetus also in the breech position. The bladder reflection was identified and a low transverse uterine incision was made. The incision was completed bluntly taking care to protect the membranes the membranes were ruptured to reveal clear amniotic fluid. The fetus was noted to be in the john breech position and was delivered in the usual breech fashion. The umbilical cord was doubly clamped divided and the infant was handed over to the waiting team. The placenta was delivered manually. The interior of the uterus was thoroughly cleaned of membranes and debris using a moist laparotomy sponge. The uterus was now exteriorized and the hysterotomy was closed in 2 layers the first layer in a running locked fashion and the second layer in a running imbricated fashion. The repair was noted to be hemostatic. Some amount of surface oozing was noted at the right ankle that was cauterized with the Bovie. A layer of Surgicel was placed on the incision. The uterus was returned to the peritoneal cavity. The Tariq retractor was removed. The peritoneum was reapproximated. The fascial incision was closed using 0 Vicryl in a running fashion. The subcutaneous fat was reapproximated using 2-0 plain gut. The skin was closed using skin lenny. The skin was thoroughly cleaned and a sterile dressing was applied. Patient was now undraped, she was transferred to the recovery room in a stable and awake condition. Patient tolerated the entire procedure well. No complications were encountered. All instrument, sponge and lap counts were correct x 2. Specimen: none Estimated blood loss (ml): 600 Complications: none Diagnosis Discharge Diagnosis (1) delivery delivered: Status: Acute (2) Supervision of high risk , unspecified, third trimester: Status: Acute (3) Maternal care for low transverse scar from previous delivery: Status: Acute Problem List Completed Was Problem List Reviewed/Reconciled?: Yes
[2025-07-14] MEDS: METHYLERGONOVINE INJ 0.2 MG/ML VIAL IM (09:33)
[2025-07-14] MEDS: TRANEXAMIC ACID 1,000 MG IVPB 1,000 MG/100 ML BAG 200 MG IV (09:41)
[2025-07-14] MEDS: ONDANSETRON INJ 2 MG/ML INJ 2 ML 4 MG IV (10:07)
[2025-07-14] MEDS: KETOROLAC INJ 30 MG/ML VIAL IVP ×2 (13:16→20:49)
--- NOTE | 2025-07-14 13:17 | PD.LDDELS ---
Data (Leonard) Data Hx Section: Yes : 2 Term: 1 : 0 Livin Abortions: Spontaneous & Theraputic: 0 Delivery Data (Leonard) Labor Data Induction/Augmentation Agent: None ROM date: 07/14/25 ROM time: 08:03 Amniotic membrane rupture type: Artificial Amniotic fluid description: Clear Delivery Data delivery date: 07/14/25 delivery time: 08:04 Placenta delivery date: 07/14/25 Placenta delivery time: 08:05 Delivered by: Agustín Villar Delivery nurse: JOSE JUAN Amos nurse: DHRUV Wire Brush Maker at delivery: No Support person(s) at delivery: FOB Other staff at delivery: ASHVIN LAM, AMANDA, Wilfrido SALDANA [employer] COUNSELOR STUDENT [employer], Evelyn MORGAN [employer] COUNSELOR STUDENT [facility] Delivery Method Delivery method: Low Transverse Anesthesia Type Anesthesia Type: Spinal Anesthesia type: Spinal Placenta Placenta delivery description: Manual Removal Cord blood sent to lab: Yes cord blood collection: Cord Blood Type Episiotomy Episiotomy description: None Umbilical Cord cord description: 3 Vessels [place] Data (Leonard) Mon[place] Data order: 1 Monmouth's gender: Male Identification band number: [id number] weight (gms): 3340 g Weight (pounds): 7 lbs and 5.8 ozs length: 53 cm 1 minute: 8 5 minutes: 9
[2025-07-14] MEDS: OXYTOCIN in NS 20 units 20 UNIT/1,000 ML BAG 125 UNIT IV (14:43)
[2025-07-14] MEDS: SIMETHICONE 80 MG CHEW PO (20:50)
[2025-07-15 00:40] VITALS: BP 100/62; PULSE 89; RESP 22; TEMP 36.8; O2SAT 95
[2025-07-15] MEDS: ACETAMINOPHEN 325 MG TABLET 650 MG PO (01:11)
[2025-07-15 04:23] VITALS: BP 96/61; PULSE 84; RESP 20; TEMP 36.4; O2SAT 97
[2025-07-15 06:17] LABS: Basophils # (Auto) 0.0 Thou/mm3 (0.0-0.2); Basophils % (Auto) 0 % (0-2.5); Eosinophils # (Auto) 0.0 Thou/mm3 (0.0-0.5); Eosinophils % (Auto) 0 % (0-10); Hematocrit 30.2 % (36.0-46.0); Hemoglobin 10.4 g/dL (12.0-16.0); Immature Granulocytes Auto 0.03 Thou/mm3 (0.00-0.00); Lymphocytes # (Auto) 1.4 Thou/mm3 (1.0-4.8); Lymphocytes % (Auto) 12 % (10-50); Mean Corpuscular HGB Conc 34.4 g/dl (31.0-37.0); Mean Corpuscular Hemoglobin 31.6 pg (25.0-35.0); Mean Corpuscular Volume 92 fL (80-100); Monocytes # (Auto) 0.6 Thou/mm3 (0.0-0.8); Monocytes % (Auto) 6 % (0-12); Neutrophils # (Auto) 9.4 Thou/mm3 (1.8-7.7); Neutrophils % (Auto) 82 % (37-80); Nucleated Red Blood Cell # 0.00 Thou/mm3 (0.00-0.00); Nucleated Red Blood Cell % 0 /100 WBC (0); Platelet Count 171 Thou/mm3 (140-440); RDW Standard Deviation 43.2 fL (36.4-46.3); Red Blood Count 3.29 Miln/mm3 (4.00-5.20); White Blood Count 11.5 Thou/mm3 (3.6-11.0)
[2025-07-15 07:50] VITALS: BP 96/61; PULSE 89; RESP 17; TEMP 36.9; O2SAT 97
[2025-07-15] MEDS: DOCUSATE SOD 100 MG CAPSULE PO (08:24)
--- NOTE | 2025-07-15 11:41 | ESDS_ITS ---
DS: Providers Provider Date of admission: 07/14/25 05:21 Primary care physician: Agustín Villar MD Admitting Provider: Agustín Villar MD Attending Provider on Admission: Agustín Villar MD Consults: 07/14/25 08:23 Referral Routine Comment: Attending Provider on DC: Pniky Deng MD Discharging Provider: Pinky Deng MD DS: Diagnosis Discharge Diagnosis (1) delivery delivered: Status: Acute (2) Supervision of high risk , unspecified, third trimester: Status: Acute (3) Maternal care for low transverse scar from previous delivery: Status: Acute Problem List Completed Was Problem List Reviewed/Reconciled?: Yes Summary/Hosp Course Brief History: 24-year-old 2 para 1-0-0-1 at 39 weeks and 0 days is presenting for her scheduled repeat low-transverse . Patient has a history of 1 prior C- section in [place]. On presentation she denies any contractions or leakage of fluid or vaginal bleeding and reports adequate movements. -- Corry is doing really well on POD 1. Getting in and out of bed easily, pain fully controlled with medications. She has had an uncomplicated post-operative course, meeting all milestones and desires discharge home. She is ambulating without lightheadedness, tolerating regular diet no n/v, spontaneously voiding without issue. Passing gas. She has no chest pain or shortness of breath. No fevers or chills. Vitals normal, benign exam. Hemodynamically stable with no evidence of infection. Post-op Hgb 10.4 from 13.1. Peripartum Data Delivery Method: Low Transverse Episiotomy Description: None Status at Discharge Functional status at discharge: independent ambulation Overall status at discharge: patient is back to baseline Time Spent with Patient Time attestation: Total time spent providing and/or coordinating discharge services: Exam Vital Signs Temp Pulse Resp BP Pulse Ox O2 Del Method 98.5 F 89 17 96/61 97 Room Air 07/15/25 07:50 07/15/25 07:50 07/15/25 07:50 07/15/25 07:50 07/15/25 07:50 07/15/25 07:50 Narrative Exam General: well developed, well nourished, no acute distress, conversant Cardiac: normal heart rate Lungs: breathing without distress Abdomen: soft, post-gravid, non-tender, no rebound or guarding, midline vertical skin incision is dry/clean/intact with lenny in place (pressure dressing removed). Incision well reapproximated. No erythema, drainage or induration. Fundus firm at u-2cm. Extremities: no pain with palpation of calves, trace edema of BLE Discharge Plan Plan Patient Disposition: HOME (Self Care) Patient condition on transfer: Stable Prescriptions/Referrals Prescriptions/Med Rec: New hydrocodone-acetaminophen 5-325 mg tablet 1 tab PO Q6H MDD 4 PRN (Reason: pain) 5 Days Qty: 20 0RF docusate sodium [Stool Softener] 100 mg capsule 100 mg PO QDAY 30 Days Qty: 30 0RF ibuprofen 600 mg tablet 600 mg PO Q6H MDD 4 PRN (Reason: fever or pain) 10 Days Qty: 40 0RF Discontinued aspirin 81 mg tablet,chewable 1 tab PO QDAY PNV no.95-ferrous fumarate-FA [] 28 mg iron- 800 mcg tablet 1 tab PO QDAY Patient Comments: TAKE 1 TABLET BY MOUTH EVERY DAY Referrals: Agustín Villar MD [Primary Care Provider, SHINGLE SAWYER] Patient/Caregiver Discharge Instructions Discharge Activity: activity as tolerated and other Other Discharge Activity Instructions:: vaginal rest and no heavy lifting more than 10 [address]. [address] while taking narcotic. keep incision clean and dry, do not submerge. Other Discharge Diet Instructions: regular Education Materials: After a Print Language: Kazakh Activity Restrictions/Additional Instructions: follow up with Dr. Villar in 1 to 2 weeks for incision check, call clinic for appointment Stand Alone Forms: Tatyana Award Info., Patient Portal Info Letter Discharge Order Discharge Orders: Discharge (Routine); Ordered 07/15/25 Ordered By: Pinky Deng Planned Discharge Date 07/15/25
[2025-07-15 11:45] VITALS: BP 98/60; PULSE 86; RESP 17; TEMP 36.9; O2SAT 98
[2025-07-15 19:59] VITALS: BP 100/62; PULSE 92; RESP 20; TEMP 37.5; O2SAT 98
[2025-07-15] MEDS: IBUPROFEN TAB 400 MG TABLET 800 MG PO (20:55)
[2025-07-15] MEDS: DIPHTH,PERTUSS(ACELL),TET VAC 0.5 ML SYR- ADULT IMi (21:54)
== END 2025-07-15 22:19 | disposition home or self-care (01) | DRG 540 ==
LOC: S4SX 07:50 → S4NX 07:57
PROVIDERS: Admitting Provider Obstetrics & Gynecology; PCP Obstetrics & Gynecology; Visit Provider Obstetrics & Gynecology
DX: O34.211 Maternal care for low transverse scar from previous cesarean delivery (principal); O34.13 Maternal care for benign tumor of corpus uteri, third trimester; D25.9 Leiomyoma of uterus, unspecified; O32.1XX0 Maternal care for breech presentation, not applicable or unspecified; Z3A.39 39 weeks gestation of pregnancy; Z37.0 Single live birth; Z23 Encounter for immunization
CPT/HCPCS: 36415; 59409; 85025; 86780; 86850; 86900; 86901; 90707; 90715; 94762; J0689; J1885; J2210; J2274; J2405; J2590; J2765; J3010; J3490; J7120; A9270; J2270